=== PATIENT | male | born 1960 | race Caucasian/White ===

== ENCOUNTER 2021-01-11 07:04 | Outpatient (REF) | payer OTHER, SELFPAY ==
--- NOTE | ~2021-01-11 | XR_ITS ---
EXAMINATION: XR CHEST CLINICAL INFORMATION: Cough evaluate for infiltrate COMPARISON: CT chest from 04/08/2014 TECHNIQUE: 2 views of the chest were obtained. FINDINGS: Chronic interstitial lung markings. Biapical pleural parenchymal scarring. No pneumothorax. Cardiomediastinal silhouette is stable. No large pleural effusion. Degenerative changes of the thoracolumbar spine. Soft tissues are XR/XR chest 2V IMPRESSION: 1. Chronic interstitial lung markings. 2. Biapical pleural parenchymal scarring.
[2021-01-11 08:37] LABS: MANUAL DIFF FLAG NO
[2021-01-11 08:45] LABS: Basophils Absolute Auto 0.1 X10*3/uL (0.0-0.2); Basophils Percent Auto 0.7 % (0-2); Eosinophils Absolute Auto 0.3 X10*3/uL (0.0-0.4); Eosinophils Percent Auto 4.5 % (0-4); Hematocrit 43.5 % (42-52); Hemoglobin 14.9 g/dl (14.0-18.0); Imm Gran Abs Auto 0.03 X10*3/uL (0.00-0.03); Imm Gran Pct Auto 0.4 % (0.0-0.4); Lymphocytes Absolute Auto 1.8 X10*3/uL (1.2-4.9); Lymphocytes Percent Auto 24.7 % (20-40); Mean Corpuscular HGB Conc 34.3 g/dl (31.0-36.0); Mean Corpuscular Hemoglobin 29.4 pg (27.0-33.0); Mean Corpuscular Volume 85.8 fL (80-98); Mean Platelet Volume 9.1 fL (9.4-12.4); Monocytes Absolute Auto 0.7 X10*3/uL (0.1-1.2); Monocytes Percent Auto 9.6 % (2-11); Neutrophils Absolute Auto 4.3 X10*3/uL (2.0-8.3); Neutrophils Percent Auto 60.1 % (45-73); Platelet Count 274 X10*3/uL (160-400); Red Blood Count 5.07 X10*6/uL (4.60-5.80); White Blood Count 7.2 X10*3/uL (4.8-10.8)
[2021-01-11 09:01] LABS: Alanine Aminotransferase 8 U/L (0-40); Albumin Level 4.5 g/dL (3.5-5.0); Alkaline Phosphatase 93 U/L (39-117); Anion Gap 10 (12-20); Aspartate Amino Transferase 14 U/L (5-37); Bilirubin Total 0.8 mg/dL (0.0-1.0); Blood Urea Nitrogen 14 mg/dL (9-16); Carbon Dioxide 28 mmol/L (22-29); Chloride 106 mmol/L (96-108); Cholesterol 135 mg/dL; Estimated Glomerular Filt Rate > 60; Glucose Fasting 98 mg/dL (60-99); HDL Cholesterol 43 mg/dL; LDL Cholesterol Calculated 76 mg/dl; Potassium 4.2 mmol/L (3.3-5.1); Sodium 140 mmol/L (135-145); Total Protein 7.2 g/dL (6.5-8.0); Triglycerides 81 mg/dL
[2021-01-11 09:34] LABS: Prostate Specific Antigen 0.59 ng/mL (<0.05-4.0)
== END 2021-01-11 07:05 | disposition home or self-care (01) ==
LOC: HO.XRAY 07:04
PROVIDERS: PCP Internal Medicine; Visit Provider Internal Medicine
DX: Z12.5 Encounter for screening for malignant neoplasm of prostate (principal); E78.00 Pure hypercholesterolemia, unspecified; N40.0 Benign prostatic hyperplasia without lower urinary tract symptoms; K21.9 Gastro-esophageal reflux disease without esophagitis; R05 Cough
CPT/HCPCS: 36415; 71046; 80053; 80061; 84153; 85025

== ENCOUNTER 2022-02-11 08:01 | Outpatient (REF) | payer OTHER, SELFPAY ==
[2022-02-11 08:18] LABS: MANUAL DIFF FLAG NO
[2022-02-11 08:56] LABS: Basophils Percent Auto 0.7 % (0-2); Eosinophils Absolute Auto 0.4 X10*3/uL (0.0-0.4); Eosinophils Percent Auto 7.3 % (0-4); Hematocrit 43.7 % (42.0-52.0); Imm Gran Abs Auto 0.03 X10*3/uL (0.00-0.03); Imm Gran Pct Auto 0.5 % (0.0-0.4); Lymphocytes Absolute Auto 1.5 X10*3/uL (1.2-4.9); Lymphocytes Percent Auto 25.5 % (20-40); Mean Corpuscular HGB Conc 34.3 g/dl (31.0-36.0); Mean Corpuscular Hemoglobin 29.8 pg (27.0-33.0); Mean Corpuscular Volume 86.9 fL (80.0-98.0); Monocytes Absolute Auto 0.8 X10*3/uL (0.1-1.2); Monocytes Percent Auto 13.5 % (2-11); Neutrophils Absolute Auto 3.1 x10*3/uL (2.0-8.3); Neutrophils Percent Auto 52.5 % (45-73); Platelet Count 252 X10*3/uL (160-400); Red Blood Count 5.03 X10*6/uL (4.60-5.80); Red Cell Distribution Width 13.1 % (11.0-16.0); White Blood Count 5.9 X10*3/uL (4.8-10.8)
[2022-02-11 09:26] LABS: Alanine Aminotransferase 11 U/L (0-40); Albumin Level 4.3 g/dL (3.5-5.0); Alkaline Phosphatase 97 U/L (39-117); Anion Gap 16 (12-20); Aspartate Amino Transferase 19 U/L (5-37); Bilirubin Total 0.6 mg/dL (0.0-1.0); Blood Urea Nitrogen 16 mg/dL (9-16); Calcium 9.7 mg/dL (8.4-10.2); Carbon Dioxide 25 mmol/L (22-29); Chloride 105 mmol/L (96-108); Cholesterol 137 mg/dL; Estimated Glomerular Filt Rate > 60; Glucose Fasting 87 mg/dL (60-99); HDL Cholesterol 36 mg/dL; LDL Cholesterol Calculated 85 mg/dl; Potassium 4.5 mmol/L (3.3-5.1); Sodium 141 mmol/L (135-145); Total Protein 7.1 g/dL (6.5-8.0); Triglycerides 81 mg/dL
[2022-02-11 09:46] LABS: Prostate Specific Antigen Scr 0.64 ng/mL (<0.05-4.0)
== END 2022-02-11 08:02 | disposition home or self-care (01) ==
LOC: HO.LAB 08:01
PROVIDERS: PCP Internal Medicine; Visit Provider Internal Medicine
DX: Z00.00 Encounter for general adult medical examination without abnormal findings (principal); Z12.5 Encounter for screening for malignant neoplasm of prostate
CPT/HCPCS: 36415; 80053; 80061; 84153; 85025

== ENCOUNTER 2023-02-10 09:07 | Day surgery (SDC) | payer MEDICARE, MEDICAID, SELFPAY ==
--- NOTE | 2023-02-07 12:05 | HO.ANESPROP2 ---
Documented by User: Kate Geronimo NP 02/07/23 12:06 HPI - Anesthesia Eval Consult details Narrative: 63yo M for Colonoscopy [facility] Past Medical History Medical History GERD (gastroesophageal reflux disease) HLD (hyperlipidemia) Asthma Surgical History Surgical History Hx of eye surgery Hx of appendectomy Hx of colonoscopy Hx of esophagogastroduodenoscopy Social History Social History Patient Tobacco Use Status: Former Tobacco user Tobacco use type: Cigarette Have you been hit, kicked, punched, or otherwise hurt by someone within the past year? If so, by whom?: No Are you DNR?: No Advance Directives: No Advance Directives Information Provided: Yes Recently lost weight without trying: No Eating poorly because of decreased appetite: No Nutrition Risks: No Nutritional Risk Poor oral hygiene: No Meds Allergies Allergy/AdvReac Type Severity Reaction Status Date / Time No Known Allergies Allergy Unverified 01/13/20 15:30 [No Known Allergies*] Home Medications Medication Instructions Recorded Confirmed Last Taken Type atorvastatin 20 mg tablet 20 mg PO DAILY 02/06/23 02/06/23 Unknown History fluticasone propionate 02/06/23 Unknown History omeprazole 20 mg capsule,delayed 20 mg PO BID 02/06/23 02/06/23 Unknown History release Exam Exam Date and Time: February 07, 2023 1205 Assessment and Plan Assessment Anesthesia Assessment: Chart Reviewed Documented by User: Deneen Saldana MD 02/10/23 11:39 [facility] Past Medical History Medical History GERD (gastroesophageal reflux disease) HLD (hyperlipidemia) Asthma Family History Family history of problems with anesthesia: No Surgical History Surgical History Hx of eye surgery Hx of appendectomy Hx of colonoscopy Hx of esophagogastroduodenoscopy History of Problems with Anesthesia: No Social History Social History Patient Tobacco Use Status: Former Tobacco user Tobacco use type: Cigarette Have you been hit, kicked, punched, or otherwise hurt by someone within the past year? If so, by whom?: No Are you DNR?: No Advance Directives: No Advance Directives Information Provided: Yes Recently lost weight without trying: No Eating poorly because of decreased appetite: No Nutrition Risks: No Nutritional Risk Poor oral hygiene: No Meds Allergies Allergy/AdvReac Type Severity Reaction Status Date / Time No Known Allergies Allergy Unverified 01/13/20 15:30 [No Known Allergies*] Home Medications Medication Instructions Recorded Confirmed Last Taken Type atorvastatin 20 mg tablet 20 mg PO DAILY 02/06/23 02/06/23 Unknown History fluticasone propionate 02/06/23 Unknown History omeprazole 20 mg capsule,delayed 20 mg PO BID 02/06/23 02/06/23 Unknown History release Exam Height,Weight and Vital Signs: Height 5 ft 6 in Weight 66.678 kg Vital Signs Temp Pulse Resp BP Pulse Ox O2 Del Method 97.2 F 90 18 124/74 96 Room Air 02/10/23 09:38 02/10/23 09:38 02/10/23 09:38 02/10/23 09:38 02/10/23 09:38 02/10/23 09:38 Airway Mallampati Class: II TM Dist: >3cm Neck ROM: Full Loose/Missing/Broken Teeth: No Heart: RRR Lungs: CTAB Assessment and Plan Assessment Anesthesia Assessment: Anesthesia Plan Discussed Final Anesthetic Review Family History of Problems with Anesthesia: No History of Problems with Anesthesia: No NPO: Yes ASA Class: II Final Preanesthetic Review: No Changes in Pt Med Stat, Meds/Allgs Chart Reviewed, Consent Obtained/Reviewed and Anes Risks/Benef Reviewed Patient Risk: Low Procedure Risk: Low Assessment/Block/Sedation in SS: Assess/Block/Sedation-SS Anesthetic Plan Anesthetic Plan: MAC: Disposition: Standard PACU
[2023-02-10 09:38] VITALS: BP 124/74; PULSE 90; RESP 18; TEMP 36.2; O2SAT 96; BMI 23.7
[2023-02-10] MEDS: Lactated Ringers 1,000 ML 100 ML IVCONT (09:42)
[2023-02-10 11:15] VITALS: BP 123/78; PULSE 90; RESP 20; TEMP 36.1; O2SAT 98
--- NOTE | 2023-02-10 11:29 | PM.OP ---
Brief Operative Note Date of Service: 02/10/23 Pre-op diagnosis: Screening Post-op diagnosis: other (Colon polyps) Procedure: Colonoscopy to the cecum and TI with hot snare polypectomy x 3, and placement of a total of 5 Resolution clips on the 2 polypectomy sites on the Ileocecal valve Surgeon: Yonis Harper MD Anesthesia: MAC Was an Paste Up Copy Camera Operator used for this Procedure?: No Estimated blood loss (mL): 2.0 Pathology: other (A. Polyps on Ileocecal valve B. Polyp at 30cm) Condition: stable Disposition: PACU
[2023-02-10 11:30] VITALS: BP 129/78; PULSE 70; RESP 18; TEMP 36.1; O2SAT 99
--- NOTE | 2023-02-10 11:53 | OP_ITS ---
DATE OF SERVICE: 02/10/2023 SURGEON: Yonis Harper MD PREOPERATIVE DIAGNOSIS: POSTOPERATIVE DIAGNOSIS: PROCEDURE PERFORMED: Colonoscopy to the cecum and terminal ileum with hot snare polypectomy x 2 in area of ileocecal valve with placement of a total of 5 Resolution clips, and 1 hot snare polypectomy at 30cm. Full consent was obtained from him for this, including risks of bleeding and perforation. ESTIMATED BLOOD LOSS: COMPLICATIONS: ANESTHESIA: Monitored anesthesia care. ASSISTANTS: SPECIMENS: PREOPERATIVE DIAGNOSES: Colorectal cancer screening and prior history of tubular adenoma of the colon. POSTOPERATIVE DIAGNOSES: Colorectal cancer screening and prior history of tubular adenoma of the colon, colon polyps, diverticulosis, and internal hemorrhoids. DESCRIPTION OF PROCEDURE: The patient was placed in the left lateral decubitus position. The digital rectal exam revealed no abnormalities. The Olympus video pediatric colonoscope was entered into the rectum and advanced easily to the cecum. Once in the cecum, I did identify normal-appearing cecal pouch with appendiceal orifice. The entire cecum appeared normal. The terminal ileum was cannulated and appeared normal. The scope was withdrawn back in the colon. On the portion of the ileocecal valve, along the inferior portion, was a raised but relatively flat grossly adenomatous polyp measuring about 12 mm, which would occasionally prolapse into the small bowel. This was removed in piecemeal fashion with hot snare polypectomy with pieces recovered for pathology. There was no sign of any definitive residual polyp nor bleeding. Two Resolution clips were applied with good deployment and good hemostasis. Of note, I was still able to cannulate the terminal ileum after deployment of the Resolution clips. The scope was slowly withdrawn assessing all mucosal surfaces carefully. Preparation was excellent. On the portion of the ileocecal valve in the proximal ascending colon, almost adjacent to the other polyp, was an approximately 12 mm raised and somewhat lobulated polyp, which may have been a serrated polyp. This was removed by hot snare polypectomy and recovered by suction. The polypectomy site appeared clean, without any sign of residual polyp nor bleeding. Three Resolution clips were applied with good deployment and good hemostasis. At 30 cm was a flat, approximately 5 mm polyp, which was removed by hot snare polypectomy and recovered by suction. The polypectomy site appeared clean, without any sign of residual polyp nor bleeding. I did not visualize any other polyps, colitis, or angiodysplasia. There was a mild amount of sigmoid diverticulosis. In the rectum, scope was retroflexed visualizing internal hemorrhoids, but no other pathology. The rectal mucosa appeared normal. Scope was straightened and withdrawn from the patient. He tolerated the procedure well and was returned to the recovery area in stable condition. IMPRESSION: 1. Colon polyps. 2. Diverticulosis. 3. Internal hemorrhoids. PLAN: The results of the pathology will be checked. If the polyps in the area of the ileocecal valve are just adenomatous or serrated polyps, I would then recommend a followup colonoscopy within 1 year. He was advised not to use any aspirin and NSAIDs for at least 1 week. MD BRINDA Rivera/GEOVANNY / [id number] MTDLinette
== END 2023-02-10 12:17 | disposition home or self-care (01) ==
PROVIDERS: PCP Internal Medicine; Visit Provider Internal Medicine
PROC: 0DJD8ZZ Inspection of Lower Intestinal Tract, Via Natural or Artificial Opening Endoscopic (ICD-10-PCS; CPT 45378; principal; 2023-02-10 10:40)
DX: Z12.11 Encounter for screening for malignant neoplasm of colon (principal); Z86.010 Personal history of colon polyps; D12.0 Benign neoplasm of cecum; D12.5 Benign neoplasm of sigmoid colon; K57.30 Diverticulosis of large intestine without perforation or abscess without bleeding; K64.8 Other hemorrhoids; K21.9 Gastro-esophageal reflux disease without esophagitis; J45.909 Unspecified asthma, uncomplicated; E78.5 Hyperlipidemia, unspecified; Z79.51 Long term (current) use of inhaled steroids; Z79.899 Other long term (current) drug therapy; Z87.891 Personal history of nicotine dependence
CPT/HCPCS: 45385; 88305; J2371

== ENCOUNTER 2023-02-13 05:50 | Outpatient (REF) | payer MEDICARE, MEDICAID, SELFPAY ==
[2023-02-13 06:06] LABS: MANUAL DIFF FLAG NO
[2023-02-13 07:05] LABS: Basophils Percent Auto 0.6 % (0-2); Eosinophils Absolute Auto 0.3 X10*3/uL (0.0-0.4); Eosinophils Percent Auto 4.8 % (0-4); Hematocrit 44.3 % (42.0-52.0); Hemoglobin 14.9 g/dl (14.0-18.0); Imm Gran Abs Auto 0.02 X10*3/uL (0.00-0.03); Imm Gran Pct Auto 0.3 % (0.0-0.4); Lymphocytes Percent Auto 30.3 % (20-40); Mean Corpuscular HGB Conc 33.6 g/dl (31.0-36.0); Mean Corpuscular Volume 86.4 fL (80.0-98.0); Monocytes Absolute Auto 0.6 X10*3/uL (0.1-1.2); Neutrophils Absolute Auto 3.6 x10*3/uL (2.0-8.3); Platelet Count 257 X10*3/uL (160-400); Red Blood Count 5.13 X10*6/uL (4.60-5.80); Red Cell Distribution Width 13.5 % (11.0-16.0); White Blood Count 6.5 X10*3/uL (4.8-10.8)
[2023-02-13 07:19] LABS: Alanine Aminotransferase 24 U/L (0-40); Albumin Level 4.1 g/dL (3.5-5.0); Alkaline Phosphatase 110 U/L (39-117); Anion Gap 15 (12-20); Aspartate Amino Transferase 15 U/L (5-37); Bilirubin Total 0.6 mg/dL (0.0-1.0); Blood Urea Nitrogen 13 mg/dL (9-16); Calcium 10.2 mg/dL (8.4-10.2); Carbon Dioxide 26 mmol/L (22-29); Chloride 107 mmol/L (96-108); Cholesterol 122 mg/dL (<200); Estimated Glomerular Filt Rate > 60; Glucose Fasting 87 mg/dL (60-99); HDL Cholesterol 34 mg/dL (>40); LDL Cholesterol Calculated 67 mg/dL (<100); Potassium 4.5 mmol/L (3.3-5.1); Sodium 143 mmol/L (135-145); Total Protein 7.2 g/dL (6.5-8.0); Triglycerides 105 mg/dL (<150)
[2023-02-13 07:43] LABS: Prostate Specific Antigen 0.64 ng/mL (<0.05-4.0)
[2023-02-13 08:27] LABS: Appearance Urine Clear; Color Urine Yellow; Glucose Urine UA Negative (Negative); Leukocyte Esterase Urine Negative (Negative); Nitrite Urine Negative (Negative); PH 5.5 (5.0-9.0); Urine Blood Negative (Negative); Urine Ketones Negative (Negative); Urine Protein Negative (Neg-Trace)
== END 2023-02-13 05:51 | disposition home or self-care (01) ==
LOC: HO.LAB 05:50
PROVIDERS: PCP Internal Medicine; Visit Provider Internal Medicine
DX: E78.00 Pure hypercholesterolemia, unspecified (principal); N40.0 Benign prostatic hyperplasia without lower urinary tract symptoms; K21.9 Gastro-esophageal reflux disease without esophagitis; J30.1 Allergic rhinitis due to pollen; Z12.5 Encounter for screening for malignant neoplasm of prostate
CPT/HCPCS: 36415; 80053; 80061; 81003; 84153; 85025

== ENCOUNTER 2023-02-25 08:00 | Outpatient (REF) | payer MEDICARE, SELFPAY ==
--- NOTE | ~2023-02-25 | XR_ITS ---
EXAMINATION: XR SHOULDER, RIGHT CLINICAL INFORMATION: Right shoulder pain, limited range of motion COMPARISON: None available. TECHNIQUE: Three views of the right shoulder. FINDINGS: Moderate degenerative changes in the acromioclavicular joint with joint space narrowing and hypertrophic change. Glenohumeral alignment preserved. No abnormal soft tissue calcifications identified adjacent to the humeral head. Mild hypertrophic change along the inferior aspect of the glenoid. XR/XR shoulder RT min 2V IMPRESSION: Mild to moderate degenerative changes.
== END 2023-02-25 08:01 | disposition home or self-care (01) ==
LOC: HO.XRAY 08:00
PROVIDERS: PCP Internal Medicine; Visit Provider Internal Medicine
DX: M25.511 Pain in right shoulder (principal)
CPT/HCPCS: 73030

== ENCOUNTER 2024-02-18 07:47 | Day surgery (SDC) | payer MEDICARE, SELFPAY ==
[2024-02-16 13:29] VITALS: BMI 23.7
--- NOTE | 2024-02-17 08:19 | P.CONAN_ITS ---
Documented by User: Kate Geronimo NP 02/17/24 08:19 HPI - Anesthesia Eval Consult details Narrative: 64yo M for Colonoscopy [facility] Past Medical History Medical History GERD (gastroesophageal reflux disease) HLD (hyperlipidemia) Asthma Family History Family history of problems with anesthesia: No Surgical History Surgical History Hx of eye surgery Hx of appendectomy Hx of colonoscopy Hx of esophagogastroduodenoscopy History of Problems with Anesthesia: No Social History Social History Are you a primary healthcare associate to a significant other at home: No Do you presently have visiting nurse or other home services: No Patient Tobacco Use Status: Former Tobacco user Tobacco use type: Cigarette Use of substances other than those prescribed or required for medical reasons: No Have you been hit, kicked, punched, or otherwise hurt by someone within the past year? If so, by whom?: No Are you DNR?: No Advance Directives: No Advance Directives Information Provided: Yes Recently lost weight without trying: No Nutrition Risks: No Nutritional Risk Meds Allergies Allergy/AdvReac Type Severity Reaction Status Date / Time No Known Allergies Allergy Verified 02/18/24 08:20 [No Known Allergies*] Home Medications ?Medication ?Instructions ?Recorded ?Confirmed ?Last Taken ?Type albuterol sulfate 90 mcg/actuation 2 puff inhalation QID PRN 02/16/24 02/16/24 Unknown History aerosol inhaler (Ventolin HFA) Shortness Of Breath Or Wheezing atorvastatin 20 mg tablet 20 mg PO DAILY 02/16/24 02/16/24 Unknown History gemfibrozil 600 mg tablet 600 mg PO BID 02/16/24 02/16/24 Unknown History omeprazole 40 mg capsule,delayed 40 mg PO BID 02/16/24 02/16/24 Unknown History release Exam Height,Weight and Vital Signs: Height 5 ft 6 in Weight 66.678 kg Assessment and Plan Assessment Anesthesia Assessment: Chart Reviewed Final Anesthetic Review Family History of Problems with Anesthesia: No History of Problems with Anesthesia: No Documented by User: Emily Gillespie MD 02/18/24 09:21 [facility] Past Medical History Medical History GERD (gastroesophageal reflux disease) HLD (hyperlipidemia) Asthma Surgical History Surgical History Hx of eye surgery Hx of appendectomy Hx of colonoscopy Hx of esophagogastroduodenoscopy Social History Social History Are you a primary healthcare associate to a significant other at home: No Do you presently have visiting nurse or other home services: No Patient Tobacco Use Status: Former Tobacco user Tobacco use type: Cigarette Use of substances other than those prescribed or required for medical reasons: No Have you been hit, kicked, punched, or otherwise hurt by someone within the past year? If so, by whom?: No Are you DNR?: No Advance Directives: No Advance Directives Information Provided: Yes Recently lost weight without trying: No Nutrition Risks: No Nutritional Risk Meds Allergies Allergy/AdvReac Type Severity Reaction Status Date / Time No Known Allergies Allergy Verified 02/18/24 08:20 [No Known Allergies*] Home Medications ?Medication ?Instructions ?Recorded ?Confirmed ?Last Taken ?Type albuterol sulfate 90 mcg/actuation 2 puff inhalation QID PRN 02/16/24 02/16/24 Unknown History aerosol inhaler (Ventolin HFA) Shortness Of Breath Or Wheezing atorvastatin 20 mg tablet 20 mg PO DAILY 02/16/24 02/16/24 Unknown History gemfibrozil 600 mg tablet 600 mg PO BID 02/16/24 02/16/24 Unknown History omeprazole 40 mg capsule,delayed 40 mg PO BID 02/16/24 02/16/24 Unknown History release Exam Airway Mallampati Class: II TM Dist: >3cm Neck ROM: Full Heart: rrr Lungs: cta Assessment and Plan Assessment Anesthesia Assessment: Anesthesia Plan Discussed Final Anesthetic Review NPO: Yes ASA Class: II Final Preanesthetic Review: No Changes in Pt Med Stat, Meds/Allgs Chart Reviewed, Consent Obtained/Reviewed and Anes Risks/Benef Reviewed Patient Risk: Low Procedure Risk: Low Anesthetic Plan Anesthetic Plan: MAC: Disposition: Standard PACU
[2024-02-18 08:25] VITALS: BMI 22.2
[2024-02-18 08:46] VITALS: BP 126/72; PULSE 78; RESP 16; TEMP 36.7; O2SAT 98
[2024-02-18] MEDS: Lactated Ringers 1,000 ML 100 ML IVCONT (08:48)
[2024-02-18 10:36] VITALS: BP 88/49; PULSE 79; RESP 18; TEMP 36.1; O2SAT 97
--- NOTE | 2024-02-18 10:40 | P.BOP_ITS ---
Brief Operative Note Date of Service: 02/18/24 Pre-op diagnosis: Screening Post-op diagnosis: other (Colon polyps) Procedure: Colonoscopy to the cecum and TI with biopsies, and hot snare polypectomy x 3 Surgeon: Yonis Harper MD Anesthesia: MAC Was an Automotive Lube Technician used for this Procedure?: No Estimated blood loss (mL): 2.0 Pathology: other (A. Site of previous polypectomy on the ICV B. Ascending colon polyp C. Transverse colon polyp D. Polyp at 20cm) Condition: stable Disposition: PACU
[2024-02-18 10:45] VITALS: BP 96/52; PULSE 75; RESP 16; O2SAT 97
[2024-02-18 11:00] VITALS: BP 123/63; PULSE 66; RESP 16; TEMP 36.1; O2SAT 100
--- NOTE | 2024-02-18 12:09 | OP_ITS ---
DATE OF SERVICE: 02/18/2024 SURGEON: Yonis Harper MD INDICATIONS: The patient presents for evaluation of colorectal cancer screening and personal history of colon polyps. Full consent has been obtained from him for this, including risks of bleeding and perforation. PREOPERATIVE DIAGNOSIS: POSTOPERATIVE DIAGNOSIS: PROCEDURE PERFORMED: Colonoscopy to the cecum and terminal ileum with biopsies and hot snare polypectomies. ESTIMATED BLOOD LOSS: COMPLICATIONS: ANESTHESIA: Monitored anesthesia care. ASSISTANTS: SPECIMENS: PREOPERATIVE DIAGNOSES: Colorectal cancer screening and personal history of colon polyps. POSTOPERATIVE DIAGNOSES: Colorectal cancer screening and personal history of colon polyps, colon polyps, diverticulosis, and internal hemorrhoids. DESCRIPTION OF PROCEDURE: The patient was placed in the left lateral decubitus position. The digital rectal exam revealed no abnormalities. The Olympus video pediatric colonoscope was entered into the rectum and advanced easily to the cecum. Once in the cecum, I did identify cecal pouch with appendiceal orifice. The terminal ileum was cannulated and appeared normal. Scope was withdrawn back in the colon. The entire cecum appeared normal. The ileocecal valve was notable for a single resolution clip that remained from 1 year ago. At the very inferior portion of the ileocecal valve was some probable hyperplastic tissue with some scarring consistent with the previous polypectomy site. This area was cauterized and no specimen was obtained. Just beneath that were similar type areas in the other polypectomy site and that area was biopsied with complete removal of any hyperplastic or polypoid appearing tissue. The scope was then slowly withdrawn assessing all mucosal surfaces carefully. Preparation was excellent. In the proximal ascending colon, in the transverse colon, and at 20 cm were approximately 8 to 10 mm polyps, which were all removed by hot snare polypectomy and recovered by suction. All the polypectomy sites appeared clean, without any sign of residual polyp nor bleeding. There was a mild amount of sigmoid diverticulosis. I did not visualize any other polyps, colitis, nor angiodysplasias. In the rectum, scope was retroflexed visualizing internal hemorrhoids, but no other pathology. The rectal mucosa appeared normal. Scope was straightened and withdrawn from the patient. He tolerated the procedure well and was returned to the recovery area in stable condition. IMPRESSION: 1. Colon polyps. 2. Diverticulosis. 3. Internal hemorrhoids. PLAN: The results of the pathology will be checked I would recommend a repeat colonoscopy in 3 years for further surveillance. He was advised not to use any aspirin and NSAIDs for 1 week. He will otherwise see me on a p.r.n. basis. MD BRINDA Rivera/GEOVANNY / [id number]
== END 2024-02-18 11:50 | disposition home or self-care (01) ==
PROVIDERS: PCP Internal Medicine; Visit Provider Internal Medicine
PROC: 0DJD8ZZ Inspection of Lower Intestinal Tract, Via Natural or Artificial Opening Endoscopic (ICD-10-PCS; CPT 45378; principal; 2024-02-18 09:30)
DX: Z12.11 Encounter for screening for malignant neoplasm of colon (principal); Z86.0101 Personal history of adenomatous and serrated colon polyps; D12.2 Benign neoplasm of ascending colon; D12.3 Benign neoplasm of transverse colon; K63.5 Polyp of colon; K57.30 Diverticulosis of large intestine without perforation or abscess without bleeding; K64.8 Other hemorrhoids; K21.9 Gastro-esophageal reflux disease without esophagitis; E78.5 Hyperlipidemia, unspecified; J45.909 Unspecified asthma, uncomplicated; Z79.51 Long term (current) use of inhaled steroids; Z79.899 Other long term (current) drug therapy; Z87.891 Personal history of nicotine dependence
CPT/HCPCS: 45385; 45380; 88305; J2003; J2371; J2704

== ENCOUNTER 2024-02-25 10:53 | Outpatient (REF) | payer MEDICARE, SELFPAY ==
[2024-02-25 11:20] LABS: MANUAL DIFF FLAG NO
[2024-02-25 11:42] LABS: Basophils Percent Auto 0.3 % (0-2); Eosinophils Absolute Auto 0.4 X10*3/uL (0.0-0.4); Eosinophils Percent Auto 6.1 % (0-4); Hemoglobin 14.1 g/dl (14.0-18.0); Imm Gran Abs Auto 0.04 X10*3/uL (0.00-0.03); Imm Gran Pct Auto 0.7 % (0.0-0.4); Lymphocytes Absolute Auto 1.2 X10*3/uL (1.2-4.9); Lymphocytes Percent Auto 19.9 % (20-40); Mean Corpuscular HGB Conc 34.4 g/dl (31.0-36.0); Mean Corpuscular Hemoglobin 29.2 pg (27.0-33.0); Mean Corpuscular Volume 84.9 fL (80.0-98.0); Mean Platelet Volume 8.7 fL (9.4-12.4); Monocytes Absolute Auto 0.6 X10*3/uL (0.1-1.2); Monocytes Percent Auto 9.6 % (2-11); Neutrophils Absolute Auto 3.8 x10*3/uL (2.0-8.3); Neutrophils Percent Auto 63.4 % (45-73); Platelet Count 245 X10*3/uL (160-400); Red Blood Count 4.83 X10*6/uL (4.60-5.80); White Blood Count 5.9 X10*3/uL (4.8-10.8)
[2024-02-25 11:52] LABS: Appearance Urine Clear; Color Urine Yellow; Glucose Urine UA Negative (Negative); Leukocyte Esterase Urine Negative (Negative); Nitrite Urine Negative (Negative); PH 6.5 (5.0-9.0); Specific Gravity - Urine 1.025 (1.005-1.025); Urine Blood Negative (Negative); Urine Ketones Negative (Negative); Urine Protein Negative (Neg-Trace)
[2024-02-25 12:22] LABS: Alanine Aminotransferase 10 U/L (0-40); Albumin Level 4.2 g/dL (3.5-5.0); Alkaline Phosphatase 76 U/L (39-117); Anion Gap 10 (12-20); Aspartate Amino Transferase 21 U/L (5-37); Bilirubin Total 0.7 mg/dL (0.0-1.0); Blood Urea Nitrogen 14 mg/dL (9-16); Calcium 9.6 mg/dL (8.4-10.2); Carbon Dioxide 29 mmol/L (22-29); Chloride 106 mmol/L (96-108); Cholesterol 107 mg/dL (<200); Estimated Glomerular Filt Rate > 60; Glucose Random 87 mg/dL (60-115); HDL Cholesterol 36 mg/dL (>40); LDL Cholesterol Calculated 57 mg/dL (<100); Potassium 4.1 mmol/L (3.3-5.1); Sodium 141 mmol/L (135-145); Total Protein 7.5 g/dL (6.5-8.0); Triglycerides 74 mg/dL (<150)
[2024-02-25 12:44] LABS: Prostate Specific Antigen 0.98 ng/mL (<0.05-4.0)
== END 2024-02-25 10:54 | disposition home or self-care (01) ==
LOC: HO.LAB 10:53
PROVIDERS: PCP Internal Medicine; Visit Provider Internal Medicine
DX: E78.5 Hyperlipidemia, unspecified (principal); N40.1 Benign prostatic hyperplasia with lower urinary tract symptoms; M54.50 Low back pain, unspecified; Z12.5 Encounter for screening for malignant neoplasm of prostate
CPT/HCPCS: 36415; 80053; 80061; 81003; 84153; 85025